=== PATIENT | female | born 1960 | race Caucasian/White ===

== ENCOUNTER → 2021-12-14 08:29 | Outpatient (CLI) | payer BC, SELFPAY ==
--- NOTE | ~2021-12-14 | XR_ITS ---
XR foot RT min 3V 12/14/2021 08:57 Indication: Right foot pain for 2 weeks Procedure: 4 views right foot Comparison: No prior studies for comparison. Findings: There is polyarticular osteoarthritis. Lisfranc joint is intact. No erosive changes. No acu te fracture or traumatic malalignment. No soft tissue abnormality. There are degenerative calcaneal e nthesophytes. Impression: 1: No acute bone or joint abnormality. 2: Polyarticular osteoarthritis. Reviewed, dictated and finalized at location A. Impression: 1: No acute bone or joint abnormality. 2: Polyarticular osteoarthritis.
== END ==
PROVIDERS: PCP Physician Assistant; Visit Provider Physician Assistant
DX: M19.071 Primary osteoarthritis, right ankle and foot (principal)
CPT/HCPCS: 73630

== ENCOUNTER 2022-02-02 07:36 | Outpatient (CLI) | payer BC, SELFPAY ==
--- NOTE | ~2022-02-02 | MM_ITS ---
EXAMINATION: MM screening jennifer BI w lev HISTORY: Screening mammogram, family history of breast cancer in her sister. TECHNIQUE: Craniocaudal and mediolateral oblique 3-D tomosynthesis images were obtained and synthetic 2-D images were generated. CAD analysis was submitted and interpreted. COMPARISON: No prior mammogram is available for comparison at this institution. BREAST PARENCHYMAL COMPOSITION: There are scattered areas of fibroglandular density. FINDINGS: RIGHT BREAST: There is a possible mass in the anterior third of the breast in line with the nipple ax is. LEFT BREAST: There is no suspicious mass, calcification, or architectural distortion to suggest malig alexsander. IMPRESSION: 1. Possible right breast mass. 2. Additional mammographic views and possible breast ultrasound are recommended. BI-RADS Category 0: Incomplete: Needs additional imaging evaluation. Reviewed, dictated and finalized at location A. IMPRESSION: 1. Possible right breast mass. 2. Additional mammographic views and possible breast ultrasound are recommended . BI-RADS Category 0: Incomplete: Needs additional imaging evaluation.
== END 2022-02-02 07:37 | disposition home or self-care (01) ==
PROVIDERS: PCP Physician Assistant; Visit Provider Physician Assistant
DX: Z12.31 Encounter for screening mammogram for malignant neoplasm of breast (principal); R92.8 Other abnormal and inconclusive findings on diagnostic imaging of breast
CPT/HCPCS: 77063; 77067

== ENCOUNTER → 2022-03-13 07:42 | Outpatient (CLI) | payer BC, SELFPAY ==
--- NOTE | ~2022-03-13 | DEXA_ITS ---
Bone Density Report Name: ROBERTO BRAVO Age: 61 Sex: Female Ethnicity: White Date of : 1960 Indication: postmenopausal; screening for osteoporosis; height loss; prior fracture; rheumatoid arthritis; Referring Provider: VALENCIA, MITZY Mercado Study: Bone densitometry was performed. Exam Date: March 13, 2022 Accession number: [id number] Bone Density: Region BMD T-score Z-score Classification AP Spine (L1-L4) 1.054 0.1 1.7 Normal Femoral Neck (Left) 0.662 -1.7 -0.3 Osteopenia Total Hip (Left) 0.720 -1.8 -0.7 Osteopenia Femoral Neck (Right) 0.687 -1.5 -0.1 Osteopenia Total Hip (Right) 0.800 -1.2 -0.1 Osteopenia Total Hip Mean 0.760 -1.5 -0.4 Osteopenia World Health Organization criteria for BMD impression classify patients as: Normal (T-score at or above -1.0), Osteopenia (T-score between -1.0 and -2.5), or Osteoporosis (T-score at or below -2.5). 10-year Fracture Risk(1): Major Osteoporotic Fracture 18% Hip Fracture 2.1% Reported Risk Factors: [place] (), Neck BMD=0.662, BMI=30.4, previous fracture, rheumatoid arthritis (1) FRAX(R) Version 3.08. Fracture probability calculated for an untreated patient. Fracture probability may be lower if the patient has received treatment. Clinical Information Provided by Patient: Has had a low trauma fracture Has rheumatoid arthritis Has used the following medications: Vitamin D, Calcium, MTV Patient maximum height was 68 Menopause Age: 34 No regular weight bearing exercise Does not regularly consume dairy products Drinks caffeinated beverages Onset of menses at age 13 Number of children 2 Impression: The patient has low bone mass, based on the Left Total Hip T-score. The patient has an estimated ten-year risk of hip fracture of 2.1% and an estimated ten-year risk of major fracture of 18%, based on the WHO FRAX algorithm. The patient has risk factors, including: previous fracture. Discussion: BONE DENSITY IS LOW AT ONE OR MORE SKELETAL SITES. This patient's lowest T-score is low at one or more skeletal sites. It meets the World Health Organization's (WHO) criteria for ?low bone mass? (T-score between -1.0 and -2.5). The patient's 10-year risk of fracture as calculated by FRAX is less than the threshold where pharmacological therapy is recommended by the National Osteoporosis Foundation (NOF). However, all treatment decisions require clinical judgment and consideration of individual patient factors, including patient preferences, comorbidities, previous drug use, risk factors not captured in the FRAX model (e.g., frailty, falls, vitamin D deficiency, increased bone turnover, interval significant decline in bone density) and possible under or overestimation of fracture risk by FRAX. The patient should follow a healthful lifestyle (good nutrition
== END ==
PROVIDERS: PCP Physician Assistant; Visit Provider Physician Assistant
DX: M85.852 Other specified disorders of bone density and structure, left thigh (principal); M85.851 Other specified disorders of bone density and structure, right thigh
CPT/HCPCS: 77080

== ENCOUNTER 2024-02-15 07:39 | Outpatient (CLI) | payer BC, SELFPAY ==
--- NOTE | ~2024-02-15 | MM_ITS ---
EXAMINATION: MM screening [facility] [place] HISTORY: Screening TECHNIQUE: Craniocaudal and mediolateral oblique 3-D tomosynthesis images were obtained and synthetic 2-D images were generated. CAD analysis was submitted and interpreted. COMPARISON: Comparison to multiple prior studies sequentially, with oldest reviewed study dated 02/2014. BREAST PARENCHYMAL COMPOSITION: Not dense: There are scattered areas of fibroglandular density. FINDINGS: There is a developing cluster of calcifications in the upper outer quadrant of the left skip ast. The right breast is stable without evidence for malignancy. IMPRESSION: 1. Developing cluster of left breast calcifications. 2. Magnification views are recommended. BI-RADS Category 0: Incomplete: Needs additional imaging evaluation. Reviewed, dictated and finalized at location B.
== END 2024-02-15 07:40 | disposition home or self-care (01) ==
PROVIDERS: PCP Nurse Practitioner Family; Visit Provider Nurse Practitioner Family
DX: Z12.31 Encounter for screening mammogram for malignant neoplasm of breast (principal); N64.89 Other specified disorders of breast
CPT/HCPCS: 77063; 77067

== ENCOUNTER 2024-03-05 10:46 | Outpatient (CLI) | payer BC, SELFPAY ==
--- NOTE | ~2024-03-05 | MM_ITS ---
EXAMINATION: MM diagnostic jennifer LT w lev HISTORY: Follow-up left breast calcifications TECHNIQUE: Additional 3-D tomosynthesis images of the left breast were performed and synthetic 2-D im ages were generated. CAD analysis was submitted and interpreted. COMPARISON: None BREAST PARENCHYMAL COMPOSITION: Not dense: There are scattered areas of fibroglandular density. FINDINGS: There are clustered calcifications in the upper outer quadrant of the left breast, middle t hird, which have a pleomorphic appearance. There are no suspicious masses or architectural distortion . IMPRESSION: 1. Clustered pleomorphic left breast calcifications, upper outer quadrant. 2. Stereotactic left breast biopsy recommended. BI-RADS category 4, suspicious findings. Reviewed, dictated and finalized at location B.
== END 2024-03-05 10:47 | disposition home or self-care (01) ==
PROVIDERS: PCP Nurse Practitioner Family; Visit Provider Nurse Practitioner Family
DX: R92.8 Other abnormal and inconclusive findings on diagnostic imaging of breast (principal)
CPT/HCPCS: 77061; 77065; G0279

== ENCOUNTER 2024-04-17 09:12 | Outpatient (CLI) | payer BC, SELFPAY ==
--- NOTE | ~2024-04-17 | MM_ITS ---
MM post biopsy diagnostic LT, MM stereotactic specimen LT, MM stereotactic bx LT EXAMINATION: MM post biopsy diagnostic LT, MM stereotactic specimen LT, MM stereotactic bx LT DATE: Julio Cox M.D. INDICATION: Abnormal calcifications in the left breast. Stereotactic core biopsy is requested evalua te for malignancy. BREAST PARENCHYMAL COMPOSITION: Not dense: There are scattered areas of fibroglandular density. TECHNIQUE AND FINDINGS: The risks and potential benefits of the procedure were discussed with the patient and written informe d consent was obtained. The patient was placed in the prone position clustered at the table with the left breast in lateral medial compression, and the area of interest was localized and targeted utili zing digital imaging with stereotaxis. After sterile preparation of the skin, 1% lidocaine was utilized for local anesthesia at the skin pun cture site and 1% lidocaine with epinephrine was utilized for deeper local anesthesia/is about the bi opsy site. A 9G Laguo vacuum assisted biopsy needle was advanced to the level of the calcification o f interest from a lateral approach utilizing stereotactic guidance and a total of 6 tissue core biops ies were obtained. A specimen radiograph demonstrates that the calcifications of interest are included within the tissue cores. A tissue marker clip was then placed at the biopsy site. The needle was removed and hemosta sis was achieved. The patient tolerated the procedure well and there is no evidence of significant i mmediate complication. The patient was given verbal as well as written postprocedural instructions p rior to discharge from the department. Tissue cores were submitted to surgical pathology for histolo gic analysis. A 2-view left unilateral digital mammogram was obtained post procedure and this demonstrates that the tissue marker clip is in expected position. IMPRESSION: 1. Successful stereotactic biopsy of calcifications in the upper outer quadrant of the left breast w ith post procedure mammogram for marker placement. Please refer to pathology report for histologic a nalysis. Reviewed, dictated and finalized at location B. IMPRESSION: 1. Successful stereotactic biopsy of calcifications in the upper outer quadran t of the left breast with post procedure mammogram for marker placement. Pleas e refer to pathology report for histologic analysis. IMPRESSION: 1. Successful stereotactic biopsy of calcifications in the upper outer quadran t of the left breast with post procedure mammogram for marker placement. Pleas e refer to pathology report for histologic analysis.
== END 2024-04-17 09:13 | disposition home or self-care (01) ==
PROVIDERS: PCP Nurse Practitioner Family; Visit Provider Nurse Practitioner Family
DX: R92.8 Other abnormal and inconclusive findings on diagnostic imaging of breast (principal)
CPT/HCPCS: 19081; 77065; 88305

== ENCOUNTER 2025-02-17 07:21 | Outpatient (CLI) | payer OTHER, SELFPAY ==
--- NOTE | ~2025-02-17 | MM_ITS ---
EXAMINATION: MM screening jennifer BI w lev HISTORY: Screening TECHNIQUE: Craniocaudal and mediolateral oblique 3-D tomosynthesis images were obtained and synthetic 2-D images were generated. CAD analysis was submitted and interpreted. COMPARISON: Comparison to multiple prior studies sequentially, with oldest reviewed study dated 02/02. BREAST PARENCHYMAL COMPOSITION: Not dense: There are scattered areas of fibroglandular density. FINDINGS: There is no evidence of suspicious mass, calcification, or architectural distortion to sugg est malignancy in either breast. There has been no suspicious interval change. IMPRESSION: 1. No mammographic evidence of malignancy. 2. Recommend routine screening mammography in one year. BI-RADS Category 1: Negative Reviewed, dictated and finalized at location []
--- OUTSIDE RECORDS SUMMARY | 2025-02-17 07:26 | XMS_ITS | Data Portability ---
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 [email or web address] Not available 10/17/2019 12:42:08 Plan of Treatment Reminders Order Date Submit Date Provider Last Modified By Organization Details Last Modified Time Details Appointments None recorded. Lab rapid flu (A+B) 2019 020 CARLOS In-Office Order, Internal Use Only DO Not Attach Compendium DO Not Attach Compendium, Do Not Delete/merge, [id number] 13:00:11 vitamin D, 25-hydroxy , total, serum 2017 018 [email or web address] [facility], [address], [place], [address], 8 09:57:12 CMP, serum or plasma 2017 018 moises [facility], [address], [place], [address], 8 09:57:09 CBC w/ auto diff 2017 018 [email or web address] [facility], [address], [place], [address], 8 09:57:09 lipid panel, serum 2017 018 [facility], [address], [place], [address], 8 16:30:26 TSH, ultra-sens itive, serum 2017 018 [facility], [address], [place], [address], 8 09:57:11 pap, IG + reflex HR HPV (16+18) - Right cervix Left cervix specimen jars labled 2016 017 [facility], [address] [facility], [address], [place], [address], 7 15:15:16 pap, IG + reflex HR HPV (16+18) 2016 017 [facility], [address], [place], [address], 7 12:18:55 fecal occult blood, stool 2016 017 [facility], [address], [place], [address], 7 11:50:19 Referral None recorded. Procedures None recorded. Surgeries None recorded. Imaging MAMMO, screening, bilateral [address] [facility], [facility], [place], [address], 7 17:23:01 Medication Orders amoxicilli n 875 mg-potassi um clavulanat e 125 mg tablet 2019 020 [facility] [id number] [facility], [address], [place], [address], 0 12:26:24 losartan 25 mg tablet 2017 018 [id number], [facility] [address], [place], [address], 8 16:18:27 losartan 25 mg tablet 2017 018 [id number], [address], [place], [address], 8 12:58:46 losartan 25 mg tablet 2017 018 [facility] [id number] [facility], [address], [place], [address], 8 15:59:05 Patient TargetsNo targets recorded. Patient Instructions Encounter Date Encounter Id Patient Instructions Last Modified By Organization Details Last Modified Time 08/20/2017 [id number] heart-healthy diet: care instructions [email or web address] Not available 08/20/2017 15:59:03 10/17/2019 [id number] Acute Sinusitis: Care Instructions [email or web address] Not available 10/17/2019 12:26:22 Reason for Referral None Reported. Results Created Date Observation Date Name Description Value Unit Range Abnormal Flag Note LastModifiedBy Organization Detail LastModifiedTime 10/17/1910/17/2019 rapid flu (A+B) Flu A negati ve Not Available In-Office Order Internal Use Only DO Not Attach Compendium DO Not Attach Compendium, Do Not Delete/merge, [id number] 10/17/2019 12:10:41 10/17/1910/17/2019 rapid flu (A+B) Flu B negati ve Not Available In-Office Order Internal Use Only DO Not Attach Compendium DO Not Attach Compendium, Do Not Delete/merge, [id number] 10/17/2019 12:10:41 Result Notes None recorded. Problems No Known Problems Procedures Surgical History Date Name Laterality Status Provider Name and Address Organization Details Recorded Time Appendectomy completed DARIELA Fox [facility] 04/11/2017 10:56:25 Joint Replacement completed Beatriz hodge CMA [place] [facility] 04/11/2017 10:56:32 Tonsillectomy completed DARIELA Fox [facility] 04/11/2017 10:56:37 delivery completed Beatriz [place] hodge [facility] 04/11/2017 10:56:56 Tubal Ligation completed Beatriz nelson [facility] 04/11/2017 10:57:07 Imaging Results None recorded. Procedure Notes None recorded. Medical Equipment None Reported. Allergies Allergen ID Allergen Name Allergen Category Reaction Reaction Severity Criticality Documentation Date Start Date Code Code System Note Provider Name and Address Organization Details Recorded Time 416328 lisinopri l medicatio n cough Not available Not available 12/03/2017 50454 RxNorm LEIGHANN Henriquez NP Attn: Azeem coombs,[address] [facility], [place], [address], [facility] 8 16:17:20 Medications Name Sig Start Date Stop Date Status Note LastModified by Organization Details LastModified Time amlodipine 5 mg tablet TAKE 1 TABLET BY MOUTH EVERYDAY AT BEDTIME active Not Available Not Available No t Available tramadol 50 mg tablet Take 1 tablet every 6 hours by oral route as needed. 2016 active Not Available Not Available Not Avai lable lisinopril 10 mg tablet Take 1 tablet every day by oral route. 08/20 completed Not Available Not Available Not Available losartan 25 mg tablet TAKE ONE TABLET BY MOUTH ONCE DAILY active Not Available Not Available No t Available amoxicillin 875 mg-potassiu m clavulanate 125 mg tablet Take 1 tablet every 12 hours by oral route. 2019 active Not Available Not Available Not Avai lable Vitamin D 50,000 unit capsule Take 1 capsule every week by oral route. 12/03 completed Not Available Not Available Not Available Calcium 500 1 tablet daily active Not Available Not Available No t Available Vitamin D3 50 mcg (2,000 unit) capsule Take 1 capsule every day by oral route. active Not Available Not Available No t Available Vitals Date Recorded Body height Body mass index (BMI) Body weight Oxygen saturation Oxygen saturation in Arterial blood by Pulse oximetry Heart rate Body temperature Systolic And Diastolic Provider Name and Address Organization Details Last Updated DateTime 8 167.64 cm 31 kg/m2 08331.8 4 g 97 % 97 % 85 /min 97.8 [degF] 156/96 mm[Hg] Beatriz Nixon [facility] 8 15:52:13 Date Recorded Body height Body mass index (BMI) Body weight Oxygen saturation Oxygen saturation in Arterial blood by Pulse oximetry Heart rate Body temperature Systolic And Diastolic Provider Name and Address Organization Details Last Updated DateTime 8 167.64 cm 30.7 kg/m2 51911.9 5 g 98 % 98 % 88 /min 98.4 [degF] 112/70 mm[Hg] Beatriz Nixon [facility] 8 10:03:05 Date Recorded Body temperature Oxygen saturation Oxygen saturation in Arterial blood by Pulse oximetry Heart rate Body weight Body height Body mass index (BMI) Systolic And Diastolic Provider Name and Address Organization Details Last Updated DateTime 0 100.3 [degF] 99 % 99 % 133 /min 13278.7 7 g 167.64 cm 30.2 kg/m2 166/78 mm[Hg] Edith Sun MA [facility] 0 12:05:53 Date Recorded Systolic And Diastolic Provider Name and Address Organization Details Last Updated DateTime 12/03/2017 140/82 mm[Hg] LEIGHANN Henriquez NP Attn: [employer]ing,[address] [place], [address], [facility] 12/03/2017 16:16:50 Date Recorded Body height Body mass index (BMI) Body weight Oxygen saturation Oxygen saturation in Arterial blood by Pulse oximetry Heart rate Body temperature Provider Name and Address Organization Details Last Updated DateTime 8 167.64 cm 30.3 kg/m2 49069.3 7 g 97 % 97 % 86 /min 98.7 [degF] Beatriz Nixon [facility] 8 16:05:36 Date Recorded Body height Body mass index (BMI) Body weight Oxygen saturation Oxygen saturation in Arterial blood by Pulse oximetry Heart rate Body temperature Systolic And Diastolic Provider Name and Address Organization Details Last Updated DateTime 7 167.64 cm 31.2 kg/m2 30316.4 3 g 97 % 97 % 100 /min 97.8 [degF] 132/90 mm[Hg] Beatriz Nixon [facility] 7 10:09:28 Social History Question Answer Notes LastModified by Organizat ion Details LastModified Time Tobacco Smoking Status Former Smoker Beatriz Nixon CMA null, [facility] 04/11/2017 10:38:20 What Was The Date Of Your Most Recent Tobacco Screening? 10/17/2019 Information not available 10/17/2019 How Much Tobacco Do You Smoke? No Information not available 10/17/2019 On What Date Was Tobacco Cessation Counseling Provided? 10/17/2019 Information not available 10/17/2019 Sex: Unknown Functional Status Question Answer Note LastModified by Organizat ion Details LastModified Time Do you or have you ever used smokeless tobacco? Never used smokeless tobacco Information not available 10/17/2019 Do you or have you ever used e-cigarettes or vape? Never used electronic cigarettes Information not available 10/17/2019 Mental Status None recorded. Family History Relationship Description Onset Age of this Age Resolved Age Notes LastModified by Organization Details LastModified Time Sister Malignant tumor of breast thulsema Not available 2016 10:57:26 Sister Diabetes mellitus thulsema Not available 2016 10:57:55 Sister Disorder of thyroid gland thulsema Not available 2016 10:58:05 Father Coronary arterioscler osis thulsema Not available 2016 10:57:43 Father Heart disease thulsema Not available 2016 10:58:16 Father Hypertensive disorder thulsema Not available 2016 10:58:23 Brother Coronary arterioscler osis thulsema Not available 2016 10:57:43 Brother Heart disease thulsema Not available 2016 10:58:16 Medical History Condition Response Coronary Artery Disease N Other N High Blood Pressure Y Atrial Fibrillation N Kidney or Bladder Problems N Thyroid Problems N GI Problems N Depression N COPD N Blood Clots N Skin Problems N Anemia N Heart Attack (MT) N Anxiety Disorder N Diabetes N Muscle, Joint, or Bone Problems Y Seizures/Epilepsy N Acid Reflux (GERD) N Cancer N Stroke N Asthma N Allergies N High Cholesterol N Hepatitis N Liver Disease N Headaches N Heart Failure N Osteoporosis Y Gynecological HistoryNo gynecological history recorded. Obstetrics History GPAL:G 0 P 0 0 0 0 Immunizations Vaccine Type Date Status Note Provider Nam e and Address Organization Details Recorded Time Influenza, split virus, quadrivalent, preservative 1 completed Apryl Perez MA null, [facility] 05/23/2021 11:38:57 influenza, unspecified formulation 6 completed Beatriz Nixon CMA null, [facility] 04/11/2017 09:21:41 Past Encounters Encounter ID Performer Location Encounter Start Date Encounter Closed Date Diagnosis/Indication Diagnosis SNOMED-CT Code Diagnosis ICD10 Code Diagnosis Note [id number] LEIGHANN Henriquez NP [facility] [address] [place] [address] 04/11/2017 10:25:53 04/11/2017 17:16:24 Essential hypertension 72364662 I10 Start lisinopril as directed. Ankle pain 158874274 M25 .579 Tramadol prn pain. [id number] LEIGHANN Henriquez NP [facility] [address] [place] [address] 05/09/2017 09:43:56 05/09/2017 16:12:03 Essential hypertension 92508275 I10 Continue lisinopril as directed. Ankle pain 844024937 M25 .579 F/u with orthopedic surgeon who performed surgery for evaluation . [id number] LEIGHANN Henriquez NP [facility] [address] [place] [address] 05/16/2017 09:55:14 05/16/2017 17:23:00 Screening mammography 21461729 Z12.31 Screening for malignant neoplasm of colon 059763917 Z12.11 Gynecologi c examination 75565533 Z01.411 Right and Left cervical pap smears obtained. [id number] LEIGHANN Henriquez NP [facility] [address] [place] [address] 08/20/2017 15:43:17 08/20/2017 17:14:22 Essential hypertension 28750890 I10 D/c lisinopril . Start losartan. F/u 1 month LEIGHANN Henriquez NP [facility] [address] [place] [address] 09/19/2017 09:47:39 09/20/2017 17:55:57 Essential hypertension 54557452 I10 BP 112/70 today. Continue losartan. F/u 3 month [id number] LEIGHANN Henriquez NP [facility] [address] [facility] [place] [address] 12/03/2017 15:55:31 12/03/2017 17:19:39 Essential hypertension 35689415 I10 Obtain labs. Continue losartan. F/u 3 months. Vitamin D deficiency 347 48290 E55.9 Recheck Vit D level [id number] Luisa Jennings MD [facility] [address] [place] [address] 10/17/2019 11:56:48 10/21/2019 17:23:53 Influenza-like symptoms 205226639 R68.89 Acute sinusitis 08549433 J01.90 Chicken soup, orange juice, popsicles, snow cones, slurpees, ice cream, tea with honey and lemon, hot lemonade, gatorade, and yogurt may make you feel better. Health Concerns Section Related Observation LastModified by Organization Detai ls LastModified Time None Recorded Concern Status LastModified by Organization Details LastModified Time None Recorded Advance Directives Directive None Recorded Payers Insurance Date Sequence Insurance Name Policy Number Policy [place] Covered Member ID [place] Member ID Guarantor Name 10/17/2019 3 [facility] [employer] (POS II) Christine Samion [id number] Christine Horacio 10/17/2019 2 [employer] (POS II) Christine Horacio [id number] Christine Horacio 11/27/2019 2 [facility] (PPO) Christine Samion [id number] Christine Horacio 11/27/2019 2 [facility] [id number] Christine Samion [id number] Christine Horacio 08/20/2017 1 [facility] [id number] Christine [place] [id number] Christine [place] 08/20/2017 1 [facility] [id number] Anuj [place] [id number] Christine [place] 10/17/2019 1 [facility] [id number] Christine [place] [id number] Christine [place] 01/21/2018 2 [facility] Christine [place] [id number] Christine Horacio OBGyn Episode No OBEpisode recorded.
--- OUTSIDE RECORDS SUMMARY | 2025-02-17 07:26 | XMS_ITS | Clinical Summary ---
Author Organization [facility] 109 [facility] Address [address] [place] [address] Care Team Providers Care Fish Hatchery Assistant Name Role Phone Enedina Kruger NP Primary Care Provider Allergies Active Allergy Reactions Criticality Noted Date Comments Iron Stomach upset Reaction: upset stomach, Lisinopril Cough Low 12/14/2021 Medications cholecalciferol (VITAMIN D-3) 2000 unit capsule daily Ac tive calcium acetate,phosphat bind, (PHOSLO) 667 mg tablet Take 600 mg by mouth daily Active furosemide (LASIX) 20 mg tablet TAKE 1 TABLET BY MOUTH EVERY DAY 90 tablet 1 08/28/2024 Active metoprolol XL (TOPROL-XL) 50 mg extended release tabletIndications :Primary hypertension TAKE 1 TABLET BY MOUTH EVERY DAY 90 tablet 4 08/28/2024 Active spironolactone (ALDACTONE) 25 mg tabletIndications :Essential hypertension TAKE 1 TABLET (25 MG TOTAL) BY MOUTH DAILY. 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 Specimens will be sent off for further evaluation. We will notify you of the results when they return Mixed hyperlipidemia 01/24/2023 Tricuspid valve insufficiency 09/06/2022 Overview (09/06/2022): Added automatically from request for surgery [id number] Diastolic dysfunction 09/06/2022 Overview (09/06/2022): Added automatically from request for surgery [id number] Dyspnea on exertion 09/06/2022 Overview (09/06/2022): Added automatically from request for surgery [id number] Obesity (BMI 30-39.9) 07/26/2022 Assessment & Plan (08/14/2024 8:09 AM PIER HAND): Discussed the patients BMI: The BMI is above average BMI management is complete. BMI follow-up includes: Nutrition Counseling and education provided Assessment & Plan (02/05/2024 8:58 AM CDT): Discussed the patients BMI: The BMI is above average BMI management is complete. BMI follow-up includes: Nutrition Counseling and education provided Assessment & Plan (08/07/2023 7:54 AM PIER HAND): Discussed the patients BMI: The BMI is above average BMI management is complete. BMI follow-up includes: Nutrition Counseling and education provided Assessment & Plan (01/24/2023 9:01 AM CDT): Discussed the patients BMI: The BMI is above average BMI management is complete. BMI follow-up includes: Nutrition Counseling and education provided Assessment & Plan (07/26/2022 8:55 AM PIER HAND): Obesity is unchanged. Discussed the patient's BMI. The BMI is above average. BMI management plan is completed. BMI Follow-up includes: nutrition counseling, exercise counseling and education provided. BMI 33.0-33.9,adult 07/26/2022 Assessment & Plan (02/11/2025 7:57 AM CDT): Discussed the patients BMI: The BMI is above average BMI management is complete. BMI follow-up includes: Nutrition Counseling and education provided Assessment & Plan (07/26/2022 8:55 AM PIER HAND): Obesity is unchanged. Discussed the patient's BMI. The BMI is above average. BMI management plan is completed. BMI Follow-up includes: nutrition counseling, exercise counseling and education provided. Bilateral leg edema 01/09/2022 Assessment & Plan (01/30/2022 8:47 PM CDT): Improved Will evaluate further with bnp and echo Assessment & Plan (01/09/2022 3:56 PM CDT): Advised elevation of legs, KANWAL joseleslie 8h/d Will add lasix every day x 7 days Will change norvasc to toprol as the norvasc may be exacerbating the edema Family history of melanoma 12/14/2021 Assessment & Plan (12/14/2021 6:40 PM CDT): Will refer to derm for further evaluation History of colon polyps 12/14/2021 Assessment & Plan (12/14/2021 6:40 PM CDT): Will refer for screening cscope Encounter for Medicare annual wellness exam 11/21 Primary hypertension 09/20/2017 Assessment & Plan (01/30/2022 8:46 PM CDT): Will increase toprol xl to 50mg every day due to uncontrolled bp Advised monitoring home bp with goal 120-130/80s, she will call over coming week with results as medications may need to be adjusted Assessment & Plan (01/09/2022 3:56 PM CDT): Will change norvasc to toprol as the norvasc may be exacerbating the edema Advised goal bp 120-130/80s Assessment & Plan (12/14/2021 6:39 PM CDT): Resume amlodipine They will monitor home bp with goal 120-130/80s. 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/2013 Overview (10/25/2016): Hand deformities Family history of malignant neoplasm of breast in first degree relative 12/06/2013 Overview (10/25/2016): Family history of breast cancer in sister Female hypergonadotropic hypogonadism 12/06/2013 Overview (10/25/2016): Early menopause Osteopenia 12/06/2013 Overview (10/26/2016): Osteopenia Assessment & Plan (12/14/2021 6:41 PM CDT): History of, will evaluate further with bmd Carpal tunnel syndrome 12/06/2013 Overview (10/26/2016): CTS (carpal tunnel syndrome) Vitamin D deficiency 12/06/2013 Overview (10/27/2016): Vitamin D deficiency Assessment & Plan (12/14/2021 6:40 PM CDT): History of, will evaluate further with labs Family history of diabetes mellitus 12/06/2013 Overview (10/27/2016): Family history of diabetes mellitus Resolved Problems Problem Noted Date Diagnosed Date Resolved Date Class 1 obesity due to exces s calories without serious comorbidity with body mass index (BMI) of 34.0 to 34.9 in adult 07/30/2023 BMI 31.0-31.9,adult 01/09/2022 07/26/19 Encounter to establish care 12/14/2021 01/09/2022 Foot pain, right 12/14/2021 07/26/2022 Assessment & Plan (01/30/2022 8:46 PM CDT): Advised consult with podiatry - she wants to talk to friends and let us know preferred cutting inspector Assessment & Plan (12/14/2021 6:40 PM CDT): Will evaluate further with xray, will notify pt of result as available Advised continuing with compression socks every day Encounter for screening mamm ogram for malignant neoplasm of breast 12/14/2021 01/29/2022 Uterus bicornis affecting 12/06/2013 10/24/2023 Overview (10/27/2016): Bicornate uterus complicating Family history of colonic polyps 12/06/2013 07/26/2022 Overview (10/27/2016): Family history of colonic polyps History of substance abuse ([facility] 04/23/2013 12/14/2021 Overview (10/25/2016): History of tobacco use Encounters Date Type Department Care Team Description 02/11/2025 8:00 AM CDT Office Visit [facility] Family Medicine [address] [address] Enedina Kruger NP Encounter for Medicare annual wellness exam (Primary Dx); BMI 33.0-33.9,adult; Obesity (BMI 30-39.9) from Last 3 Months Immunizations Immunization Administration Dates Next Due Influenza, Quadrivalent, Spl it, Intramuscular 05/04/2021,03/31/2016 Influenza, Quadrivalent, Spl it, Preservative Free, Intramuscular 07/30/2023,05/04/2021,04/17/2020 Influenza, Trivalent, Split, Preservative Free, Intradermal 04/29/2014 Influenza, Unspecified 08/14/2024(Deferr ed: Patient Refused),07/23/2024(Deferred: Patient Refused),07/23/2023(Deferred: Patient Refused),07/23/2023(Deferred: Patient Refused),04/22/2022,03/31/2016 Moderna Sars-cov-2 Bivalent Vaccine 50 Mcg/0.5 mL (12+ YRS)-Blue/Painter 05/03/2022 Pneumococcal Conjugate Pcv20 02/12/2024( Deferred: Patient Refused),01/24/2023(Deferred: Patient Refused) Pneumococcal Polysaccharide PPV23 05/17/2011 Tdap 04/23/2013 ZOSTER Recombinant 05/22/2020,04/17/2020 Surgical History Surgery Date Site/Laterality Comments OTHER SURGICAL HISTORY congenital hand surgery APPENDECTOMY 1985 Appendectomy TUBAL LIGATION 07/23/1985 - 07/22/1986 ANKLE SURGERY Left SECTION x2 BREAST BIOPSY 04/28/2024 Left Medical History Medical History Date Comments Pneumonia 2006 pneumonia Family History Medical History Relation Name Comments Other Brother 2 Alive and well; Coronary artery disease Father Rohan nary artery disease; Cause of : Coronary artery disease Anuerysm Mother Aneurysm; Breast cancer Sister 1 Cancer -breast ; Cancer Sister 2 Diabetes type II Sister 2 Diabetes -T ype 2; Brain cancer Son 2 Cancer -brain t umor; Cause of : Cancer -brain tumor Ovarian cancer Neg Hx Relation Name Status Comments Brother 1 Alive Brother 2 Father (Age 69) Mother Sister 1 Sister 2 Son 1 Son 2 Social History Tobacco Use Types Packs/Day Years Used Date Smoking Tobacco: Former Cigarettes 1 15 0 07/23/1997 - 07/23/2012 Tobacco Cessation:Counseling Given: Not Answered Comments:Smoking History Packs/day: 1.5 Packs Alcohol Use Standard Drinks/Week Comments Yes 0 (1 standard drink = 0.6 oz pur e alcohol) AUDIT-C Answer Date Recorded Q1: How often do you have a drink containing alc ohol? Monthly or less 02/11/2025 Q2: How many drinks containi ng alcohol do you have on a typical day when you are drinking? 1 or 2 02/11/2025 Q3: How often do you have si x or more drinks on one occasion? Never 02/11/2025 PHQ-2 Answer Date Recorded PHQ-2 Total Score (If total score is 3 or more points, staff should administer the PHQ-9) 0 02/11/2025 Personal Safety Answer Date Recorded Have you ever been in or are you currently in a harmful physical or emotional relationship or is someone making you feel afraid or unsafe? Denies 10/24/2022 Comments No Sex and Gender Information Value Date Recorded Sex Assigned at Not on file Legal Sex Female 1:08 PM PIER HAND Gender Identity Female 04/22/2024 9:58 AM CDT Sexual Orientation Not on file Occupation Industry Job Start Date Job End Date Retired Not on file Not on file Not on file Obstetrics History Para Term AB IAB SAB Ectopic Multiple Livin g Live Births 3 2 2 1 1 2 2 Date Outcome GA Total Labor Labor/2nd/3rd Weight Sex Type Anes PTL Heidy A1 A5 Name Clin Term Term SAB Last Filed Vital Signs Vital Sign Reading Time Taken Comments Blood Pressure 124/80 02/11/2025 7:54 AM CDT Pulse 58 02/11/2025 7:54 AM CDT Temperature 36.5 C (97.7 F) 02/11/2025 7:54 AM CDT Respiratory Rate 16 10/24/2022 12:40 PM CDT Oxygen Saturation 99% 02/11/2025 7:54 AM CDT Inhaled Oxygen Concentration - - Weight 93.9 kg (207 lb) 02/11/2025 7:54 AM CDT Height 166.4 cm (5' 5.5) 02/11/2025 7:54 AM CDT Body Mass Index 33.92 02/11/2025 7:54 AM CDT Plan of Treatment Health Maintenance Due Date Last Done Comments Hepatitis B Screening 1978 Pneumococcal vaccine 65+ (2 of 2 - PCV) 05/17/2012 05/17/2011 DTaP/Tdap/Td Vaccine (2 - Td or Tdap) 04/23/2023 04/23/2013 Osteoporosis Screening-Bone Density Scan 03/13/2024 03/13/2022, 04/29/2014 Covid-19 Vaccine (4 - 2023-2 5 season) 2024 05/03/2022, 06/17/2021, 09/27/2020 Cervical Cancer Screening 08/07/2024 08/07/2023 Breast Cancer Screening-Mammogram 02/14/2025 02/15/2024, 02/15/2022, 04/29/2014 Influenza Vaccine (#1) 2025 , 04/22/2022, 05/04/2021, Additional history exists Depression Screening 02/11/2026 02/11/2025, 08/14/2024, 02/05/2024, Additional history exists Fall Risk Assessment 02/11/2026 02/11/2025, 08/14/2024, 02/05/2024, Additional history exists Well Visit 65+ 02/11/2026 02/11/2025, 07/24, 08/07/2023, Additional history exists Colon Cancer Screening-DNA Stool 03/19/2026 03/19/2023, 03/19/2023, 03/08/2023 Hepatitis C Screening Completed 05/04/2014 Zoster Vaccine Completed 05/22/2020, 04/17/2020 Procedures Procedure Name Priority Date/Time Associated Diagnosis Comments SCREENING MAMMOGRAM BILATERAL W TREY Schedule Routine, Read Routine (OP Routine) 02/15/2024 1:07 PM CDT Breast cancer screening by mammogram PAP AND HPV, REFLEX TO HPV GENOTYPES Routine 08/07/2023 8:30 AM PIER HAND Cervical cancer screening STOOL DNA COLOGUARD Routine 03/19/2023 10:35 AM CDT DEXA AXIAL SKELETON BONE DENSITY 1 OR MORE SITES Schedule Routine, Read Routine (OP Routine) 03/13/2022 Osteopenia, unspecified location SERUM HEPATITIS C AB Routine 05/04/2014 10:08 AM CDT from Last 3 Months or Most Recently Relevant to Health Maintenance Results * Screening Mammogram Bilateral W Trey (02/15/2024 1:07 PM CDT) Anatomical Region Laterality Modality Breast Bilateral Mammography Enedina Kruger NP IM MAMMO PROCEDURES Final Re sult * (ABNORMAL) Pap and HPV, reflex to HPV Genotypes (08/07/2023 8:30 AM PIER HAND) [facility] Comment:POST LIVE Previous Pap [facility] Comment:PREV NEG Prev. Bx [facility] Comment:None given SOURCE: [facility] Comment:Cervix, Endocervix Pap, specimen adequacy [facility] Comment: Satisfactory for evaluation. Endocervical/transformation zone component present. Pap, general categorization (A) [facility] Comment:Cytology Results: Ep ithelial Cell Abnormality HPV interp (A) [facility] Comment: Atypical Squamous Cells of Undetermined Significance (ASC-US) COMMENTS [facility] Comment: This Pap test has been evaluated with computer assisted technology. Suggest clinical correlation and follow-up as clinically appropriate Wheel Cleaner Que [facility] Comment: BKA, CT(ASCP) CT screening location: [place] [address] [address] [facility] Comment: Sidney Bentley M.D., Board Certified in Anatomic Pathology and Cytopathology. (electronic signature) Comment [facility] Comment: EXPLANATORY NOTE: The Pap is a screening test for cervical cancer. It is not a diagnostic test and is subject to false negative and false positive results. It is most reliable when a satisfactory sample, regularly obtained, is submitted with relevant clinical findings and history, and when the Pap result is evaluated along with historic and current clinical information. Human papillomavirus DNA, High Risk E6/E7 Detected (A) NOT DETECTED [facility] Comment: Detected One or more High Risk HPV types (16,18,31,33, 35,39,45,51,52,56,58,59,66,68) was detected. Methodology: Real Time PCR Thin prep 08/07/2023 8:30 AM PIER HAND 08/08/2023 2:39 AM PIER HAND Result [facility] Enedina Kruger SUPERVISOR CAB LAB CYTOLOGY ORDERABLES Final Result [place] [address] [address] [place] [address] Mobile Patrol/[facility] [address] [place] [address] * Stool DNA - Cologuard (03/19/2023 10:35 AM CDT) Stool Historical Provider MD LAB BODY FLUIDS AND STOOL S ORDERABLES Final Result * Dexa Axial Skeleton Bone Density 1 or 2 Site (03/13/2022) Anatomical Region Laterality Modality Body N/A Radiographic Kanika ging Misty BUCIO IMG DXA PROCEDURES Final R esult * Serum Hepatitis C ab (05/04/2014 10:08 AM CDT) HCV ab NON-REACTI VE NON-REACTI VE HISTORICAL RESULTS Hepatitis signal to cutoff ratio 0.03 <1.00 HISTORICAL RESULTS Serum 05/04/2014 10:0 8 AM CDT Narrative HISTORICAL RESULTS - 05/07/2014 2:00 PM CDT Test performed at [facility] [address] [place] [address] Director: SUZANNE PATEL DO,MPH us Historical Provider LAB BLOOD ORDERABLES Unique valle Result HISTORICAL RESULTS from Last 3 Months or Most Recently Relevant to Health Maintenance Insurance [employer] ACCESS CHOICE [employer] CHOICE PPO [facility] ACCESS CHOICE Advance Directives For more information, please contact: [phone] * Full Code (Latest Code Status on File) Date Activated Date Inactivated Comments 10/24/2022 10:20 AM 10/24/2022 5:26 PM Care Teams Fish Hatchery Assistant Relationship Specialty Start Date End Date Enedina Kruger NP PCP - General Internal Medicine 07/19/22
--- OUTSIDE RECORDS SUMMARY | 2025-02-17 07:26 | XMS_ITS | Referral Summary ---
Author Organization [facility] [address] [facility] Address [address] [place] [address] Care Team Providers Care Dye Operator Name Role Phone Enedina Kruger CUSTOMER CONTACT SPECIALIST Primary Care Provider [phone] Encounters Date Type Department Care Team Description 02/11/2025 8:00 AM CDT Office Visit [facility] Family Medicine [address] [place] [address] [place] [address] Enedina Kruger, KATIE Encounter for Medicare annual wellness exam (Primary Dx); BMI 33.0-33.9,adult; Obesity (BMI 30-39.9) from Last 3 Months Allergies Active Allergy Reactions Criticality Noted Date [...] (09/06/2022): Added automatically from request for surgery [id number] Diastolic dysfunction 09/06/2022 Overview (09/06/2022): Added automatically from request for surgery [id number] Dyspnea on exertion 09/06/2022 Overview (09/06/2022): Added automatically from request for surgery [id number] Obesity (BMI 30-39.9) 07/26/2022 Assessment & Plan (08/14/2024 8:09 AM AUTOMATIC DRY STARCH OPERATOR): Discussed the patients BMI: The BMI is above average BMI management is complete. BMI follow-up includes: Nutrition Counseling and education provided Assessment & Plan (02/05/2024 8:58 AM CDT): Discussed the patients BMI: The BMI is above average BMI management is complete. BMI follow-up includes: Nutrition Counseling and education provided Assessment & Plan (08/07/2023 7:54 AM AUTOMATIC DRY STARCH OPERATOR): Discussed the patients BMI: The BMI is above average BMI management is complete. BMI follow-up includes: Nutrition Counseling and education provided Assessment & Plan (01/24/2023 9:01 AM CDT): Discussed the patients BMI: The BMI is above average BMI management is complete. BMI follow-up includes: Nutrition Counseling and education provided Assessment & Plan (07/26/2022 8:55 AM AUTOMATIC DRY STARCH OPERATOR): Obesity is unchanged. Discussed the patient's BMI. [...] provided Assessment & Plan (07/26/2022 8:55 AM AUTOMATIC DRY STARCH OPERATOR): Obesity is unchanged. Discussed the patient's BMI. The BMI is above average. BMI management plan is completed. BMI Follow-up includes: nutrition counseling, exercise counseling and education provided. Bilateral leg edema 01/09/2022 Assessment & Plan (01/30/2022 8:47 PM CDT): Improved Will evaluate further with bnp and echo Assessment & Plan (01/09/2022 3:56 PM CDT): Advised elevation of legs, KANWAL mirza 8h/d Will add lasix every day x [...] to friends and let us know preferred college specialist Assessment & Plan (12/14/2021 6:40 PM CDT): [...] of colonic polyps History of substance abuse ([facility]) 04/23/2013 12/14/2021 Overview (10/25/2016): History of tobacco use Immunizations Immunization Administration Dates Next Due Influenza, [...] PPV23 05/17/2011 Tdap 04/23/2013 ZOSTER Recombinant 05/22/2020,04/17/2020 Social History Tobacco Use Types Packs/Day Years [...] on file Legal Sex Female 1:08 PM AUTOMATIC DRY STARCH OPERATOR Gender Identity Female 04/22/2024 9:58 AM CDT Sexual Orientation Not on file Occupation Industry Job Start Date Job End Date Retired Not on file Not on file Not on file Last Filed Vital Signs Vital Sign Reading [...] 02/11/2025 7:54 AM CDT Plan of Treatment Not on file Procedures Procedure Name Priority Date/Time Associated Diagnosis Comments SCREENING MAMMOGRAM BILATERAL W TREY Schedule Routine, Read Routine (OP Routine) 02/15/2024 1:07 PM CDT Breast cancer screening by mammogram PAP AND HPV, REFLEX TO HPV GENOTYPES Routine 08/07/2023 8:30 AM AUTOMATIC DRY STARCH OPERATOR Cervical cancer screening STOOL DNA COLOGUARD Routine [...] Modality Breast Bilateral Mammography Enedina Kruger NP IMG MAMMO PROCEDURES Final Re sult * (ABNORMAL) Pap and HPV, reflex to HPV Genotypes (08/07/2023 8:30 AM AUTOMATIC DRY STARCH OPERATOR) CLINICAL INFORMATION: [facility] Comment:Postmenopausal LMP [facility] Comment:POST LIVE Previous Pap [facility] Comment:PREV NEG Prev. Bx [facility] Comment:None given SOURCE: [facility] Comment:Cervix, Endocervix Pap, specimen adequacy [facility] Comment: Satisfactory for evaluation. Endocervical/transformation zone component present. Pap, general categorization (A) [facility] Comment:Cytology Results: Ep ithelial Cell Abnormality HPV interp (A) [facility] Comment: Atypical Squamous Cells of Undetermined Significance (ASC-US) COMMENTS [facility] Comment: This Pap test has been evaluated with computer assisted technology. Suggest clinical correlation and follow-up as clinically appropriate Film Archivist Que [facility] Comment: BKA, CT(ASCP) CT screening location: [place] [address] [address] REJI Garcia [facility] Pathologist [facility] Comment: Sidney Bentley M.D., Board Certified in Anatomic Pathology and Cytopathology. (electronic signature) Comment [facility] Comment: EXPLANATORY NOTE: The Pap is a [...] High Risk E6/E7 Detected (A) NOT DETECTED [facility] Comment: Detected One or more High Risk HPV types (16,18,31,33, 35,39,45,51,52,56,58,59,66,68) was detected. Methodology: Real Time PCR Thin prep 08/07/2023 8:30 AM AUTOMATIC DRY STARCH OPERATOR 08/08/2023 2:39 AM AUTOMATIC DRY STARCH OPERATOR Enedina Kruger NP LAB CYTOLOGY ORDERABLES Final Result [facility] [address] [place] [address] [facility] [address] [place] [address] * Stool DNA - Cologuard (03/19/2023 10:35 [...] 05/07/2014 2:00 PM CDT Test performed at [facility] [address] [address] Director: SUZANNE PATEL DO,MPH us Historical Provider LAB BLOOD ORDERABLES Unique valle Result HISTORICAL RESULTS from Last 3 Months or Most Recently Relevant to Health Maintenance Insurance [employer] CHOICE [employer] CHOICE PPO [facility] ACCESS CHOICE Advance Directives For more information, please contact: [phone] * Full Code (Latest Code Status on File) Date Activated Date Inactivated Comments 10/24/2022 10:20 AM 10/24/2022 5:26 PM Care Teams Dye Operator Relationship Specialty Start Date End Date Enedina Kruger NP PCP - General Internal Medicine 07/19/22
== END 2025-02-17 07:22 | disposition home or self-care (01) ==
LOC: ANHIMG 07:23
PROVIDERS: PCP Nurse Practitioner Family; Visit Provider Nurse Practitioner Family
DX: Z12.31 Encounter for screening mammogram for malignant neoplasm of breast (principal)
CPT/HCPCS: 77063; 77067

== ENCOUNTER 2025-05-01 07:49 | Outpatient (CLI) | payer OTHER, SELFPAY ==
--- NOTE | ~2025-05-01 | DEXA_ITS ---
Bone Density Report Name: ROBERTO BRAVO Age: 64 Sex: Female Ethnicity: White Date of : 1960 Indication: postmenopausal; screening for osteoporosis; Referring Provider: MAMADOU, PACO Study: Bone densitometry was performed. Exam Date: May 01, 2025 Accession number: [id number] Bone Density: Region BMD T-score Z-score Classification AP Spine(L1-L4) 1.049 0.0 1.8 Normal Femoral Neck (Left) 0.617 -2.1 -0.5 Osteopenia Total Hip (Left) 0.743 -1.6 -0.4 Osteopenia Femoral Neck (Right) 0.687 -1.5 0.1 Osteopenia Total Hip (Right) 0.813 -1.1 0.2 Osteopenia Total Hip Mean 0.778 -1.4 -0.1 Osteopenia World Health Organization criteria for BMD impression classify patients as: Normal (T-score at or above -1.0), Osteopenia (T-score between -1.0 and -2.5), or Osteoporosis (T-score at or below -2.5). 10-year Fracture Risk(1): Major Osteoporotic Fracture 11% Hip Fracture 1.6% Reported Risk Factors: [place] (), Neck BMD=0.617, BMI=31.2 (1) FRAX(R) Version 3.08. Fracture probability calculated for an untreated patient. Fracture probability may be lower if the patient has received treatment. Previous Exams: Region Exam Age BMD T-score BMD Change BMD Change Date g/cm2 vs Baseline vs Previous AP Spine (L1-L4) 05/01/2025 64 1.049 0.0 0.024 (2.4%)# 0.024 (2.4%)# 03/05/2017 56 1.025 -0.2 Total Hip(Left) 05/01/2025 64 0.743 -1.6 -0.074 (-9.0%) -0.074 (-9.0%) 03/05/2017 56 0.817 -1.0 Total Hip(Right) 05/01/2025 64 0.813 -1.1 -0.070 (-7.9%) -0.070 (-7.9%) 03/05/2017 56 0.883 -0.5 *Denotes significance at 95% confidence level, LSC for AP Spine = 0.022 g/cm2, LSC for Total Hip = 0.027 g/cm2 # Denotes dissimilar scan types or analysis methods Impression: The patient has low bone mass, based on the Left Femoral Neck T-score. The patient has an estimated ten-year risk of hip fracture of 1.6% and an estimated ten-year risk of major fracture of 11%, based on the WHO FRAX algorithm. No significant bone loss was observed. Discussion: BONE DENSITY IS LOW AT ONE OR MORE SKELETAL SITES. This patient's lowest T-score is low at one or more skeletal sites. It meets the World Health Organization's (WHO) criteria for ?low bone mass? (T-score between -1.0 and -2.5). The patient's 10-year risk of fracture as calculated by FRAX is less than the threshold where pharmacological therapy is recommended by the National Osteoporosis Foundation (NOF). However, all treatment decisions require clinical judgment and consideration of individual patient factors, including patient preferences, comorbidities, previous drug use, risk factors not captured in the FRAX model (e.g., frailty, falls, vitamin D deficiency, increased bone turnover, interval significant decline in bone density) and possible under or overestimation of fracture risk by FRAX. The patient should follow a healthful lifestyle (good nutrition with adequate calcium and vitamin D, and appropriate weight-bearing exercise). Follow-Up: Consider repeating this study in 2 to 3 years to reassess this patient's status, or sooner if there is some new clinical indication. Reported by: MAGDA on 05/01/2025 8:40:00 AM. Reviewed, dictated and finalized at location A.
--- OUTSIDE RECORDS SUMMARY | 2025-05-01 08:00 | XMS_ITS | Clinical Summary ---
Author Organization [facility] [address] [facility] Address [address] [place] [address] Care Team Providers Care Director Of Community Life Name Role Phone Enedina Kruger NP Primary Care Provider [phone] Allergies Active Allergy Reactions Criticality Noted Date Comments Iron Stomach upset Reaction: upset stomach, Lisinopril Cough Low 12/14/2021 Medications cholecalciferol (VITAMIN D-3) 2000 unit capsule daily Ac tive calcium acetate,phosphat bind, (PHOSLO) 667 mg tablet Take 600 mg by mouth daily Active metoprolol XL (TOPROL-XL) 50 mg extended release tabletIndications :Primary hypertension TAKE 1 TABLET BY MOUTH EVERY DAY 90 tablet 4 08/28/2024 Active spironolactone (ALDACTONE) 25 mg tabletIndications :Essential hypertension TAKE 1 TABLET (25 MG TOTAL) BY MOUTH DAILY. 90 tablet 1 11/25/2024 11/26/19 26 Active furosemide (LASIX) 20 mg tablet TAKE 1 TABLET BY MOUTH EVERY DAY 100 tablet 1 02/21/2025 Active Active Problems Problem Noted Date Diagnosed [...] (09/06/2022): Added automatically from request for surgery [id number] Diastolic dysfunction 09/06/2022 Overview (09/06/2022): Added automatically from request for surgery [id number] Dyspnea on exertion 09/06/2022 Overview (09/06/2022): Added automatically from request for surgery [id number] Obesity (BMI 30-39.9) 07/26/2022 Assessment & Plan (08/14/2024 8:09 AM MEDICAL ADVISOR): Discussed the patients BMI: The BMI is above average BMI management is complete. BMI follow-up includes: Nutrition Counseling and education provided Assessment & Plan (02/05/2024 8:58 AM CDT): Discussed the patients BMI: The BMI is above average BMI management is complete. BMI follow-up includes: Nutrition Counseling and education provided Assessment & Plan (08/07/2023 7:54 AM MEDICAL ADVISOR): Discussed the patients BMI: The BMI is above average BMI management is complete. BMI follow-up includes: Nutrition Counseling and education provided Assessment & Plan (01/24/2023 9:01 AM CDT): Discussed the patients BMI: The BMI is above average BMI management is complete. BMI follow-up includes: Nutrition Counseling and education provided Assessment & Plan (07/26/2022 8:55 AM MEDICAL ADVISOR): Obesity is unchanged. Discussed the patient's BMI. [...] provided Assessment & Plan (07/26/2022 8:55 AM MEDICAL ADVISOR): Obesity is unchanged. Discussed the patient's BMI. The BMI is above average. BMI management plan is completed. BMI Follow-up includes: nutrition counseling, exercise counseling and education provided. Bilateral leg edema 01/09/2022 Assessment & Plan (01/30/2022 8:47 PM CDT): Improved Will evaluate further with bnp and echo Assessment & Plan (01/09/2022 3:56 PM CDT): Advised elevation of legs, KANWAL joselelsie 8h/d Will add lasix every day x [...] to friends and let us know preferred scrap carrier Assessment & Plan (12/14/2021 6:40 PM CDT): [...] of colonic polyps History of substance abuse ([facility]) 04/23/2013 12/14/2021 Overview (10/25/2016): History of tobacco use Encounters Date Type Department Care Team Description 02/18/2025 Results Follow-Up [facility] Family Medicine [address] [place] [address] [place] [phone] Enedina Kruger NP HM MAMMOGRAPHY 02/17/2025 Orders Only [address] [place] [phone] Provider, MD Laly 02/11/2025 8:00 AM CDT Office Visit [facility] Family Medicine [address] [place] [address] [place] [phone] Enedina Kruger NP Encounter for Medicare annual [...] on file Legal Sex Female 1:08 PM MEDICAL ADVISOR Gender Identity Female 04/22/2024 9:58 AM CDT [...] Osteoporosis Screening-Bone Density Scan 03/13/2024 03/13/2022, 04/29/2014 Cervical Cancer Screening 08/07/2024 08/07/2023 Covid-19 Vaccine ( - 2024-2 6 season) 2025 05/03/2022, 06/17/2021, 09/27/2020 Influenza Vaccine (#1) 2025 , 04/22/2022, 05/04/2021, Additional history exists Depression Screening 02/11/2026 02/11/2025, 08/14/2024, 02/05/2024, Additional history exists Fall Risk Assessment 02/11/2026 02/11/2025, 08/14/2024, 02/05/2024, Additional history exists Well Visit 65+ 02/11/2026 02/11/2025, 07/24, 08/07/2023, Additional history exists Breast Cancer Screening-Mammogram 02/17/2026 02/17/2025, 02/15/2024, 02/15/2022, Additional history exists Colon Cancer Screening-DNA Stool 03/19/2026 03/19/2023, 03/19/2023, 03/08/2023 Hepatitis C Screening Completed 05/04/2014 Zoster Vaccine Completed 05/22/2020, 04/17/2020 Procedures Procedure Name Priority Date/Time Associated Diagnosis Comments MAMMOGRAPHY Routine 02/17/2025 4:32 PM CDT PAP AND HPV, REFLEX TO HPV GENOTYPES Routine 08/07/2023 8:30 AM MEDICAL ADVISOR Cervical cancer screening STOOL DNA COLOGUARD Routine 03/19/2023 10:35 AM CDT DEXA AXIAL SKELETON BONE DENSITY 1 OR MORE SITES Schedule Routine, Read Routine (OP Routine) 03/13/2022 Osteopenia, unspecified location SERUM HEPATITIS C AB Routine 05/04/2014 10:08 AM CDT from Last 3 Months or Most Recently Relevant to Health Maintenance Results * HM MAMMOGRAPHY (02/17/2025 4:32 PM CDT) Mammography Normal us Historical Provider HEALTH MAINTENANCE Edited Result - Final * (ABNORMAL) Pap and HPV, reflex to HPV Genotypes (08/07/2023 8:30 AM MEDICAL ADVISOR) CLINICAL INFORMATION: [email or web address] Comment:Postmenopausal LMP [email or web address] Comment:POST LIVE Previous Pap [email or web address] Comment:PREV NEG Prev. Bx [facility] Comment:None given SOURCE: [facility] Comment:Cervix, Endocervix Pap, specimen adequacy [facility] Comment: Satisfactory for evaluation. Endocervical/transformation zone component present. Pap, general categorization (A) [facility] Comment:Cytology Results: Ep ithelial Cell Abnormality HPV interp (A) [facility] Comment: Atypical Squamous Cells of Undetermined Significance (ASC-US) COMMENTS [facility] Comment: This Pap test has been evaluated with computer assisted technology. Suggest clinical correlation and follow-up as clinically appropriate [facility] Comment: BKA, CT(ASCP) CT screening location: [place] [address] [address] [address] Pathologist [facility] Comment: Sidney Bentley M.D., Board Certified in Anatomic Pathology and Cytopathology. (electronic signature) Comment [facility] Comment: EXPLANATORY NOTE: The Pap is a [...] High Risk E6/E7 Detected (A) NOT DETECTED [facility] Comment: Detected One or more High Risk HPV types (16,18,31,33, 35,39,45,51,52,56,58,59,66,68) was detected. Methodology: Real Time PCR Thin prep 08/07/2023 8:30 AM MEDICAL ADVISOR 08/08/2023 2:39 AM MEDICAL ADVISOR us Enedina Kruger NP LAB CYTOLOGY ORDERABLES Final Result [facility] [address] [address] [place] [phone] [facility] [address] [place] [address] * Stool DNA - Cologuard (03/19/2023 10:35 AM CDT) Stool Historical Provider LAB BODY FLUIDS AND STOOL S ORDERABLES [...] 05/07/2014 2:00 PM CDT Test performed at [facility] [address] [place] [address] Director: SUZANNE PATEL DO,MPH Historical Provider LAB BLOOD ORDERABLES Unique l Result HISTORICAL RESULTS from Last 3 Months or Most Recently Relevant to Health Maintenance Insurance [facility] ACCESS CHOICE [employer] CHO[employer] PPO [employer] ACCESS CHOICE Advance Directives For more information, please contact: [phone] * Full Code (Latest Code Status on File) Date Activated Date Inactivated Comments 10/24/2022 10:20 AM 10/24/2022 5:26 PM Care Teams Director Of Community Life Relationship Specialty Start Date End Date Enedina Kruger NP PCP - General Internal Medicine 07/19/22
== END 2025-05-01 07:50 | disposition home or self-care (01) ==
LOC: ANHFOHIMG 07:56
PROVIDERS: PCP Nurse Practitioner Family; Visit Provider Nurse Practitioner Family
DX: M81.0 Age-related osteoporosis without current pathological fracture (principal); M85.852 Other specified disorders of bone density and structure, left thigh; M85.851 Other specified disorders of bone density and structure, right thigh
CPT/HCPCS: 77080